=== PATIENT | female | born 1980 | race Caucasian/White ===

== ENCOUNTER 2017-12-22 05:21 | Emergency (ER) | payer BC ==
[2017-12-22 05:38] VITALS: TEMP 99.7; BMI 21.9
--- NOTE | 2017-12-22 06:11 | PDOC ---
Attending Attestation - Resident Resident Name: Amador Bowen - ED Attending Attestation I have performed the following: I have examined & evaluated the patient, The case was reviewed & discussed with the resident, I agree w/resident's findings & plan - HPI HPI: 12/22/17 06:04 Pt had a miscarriage of her 15 week twins. Babies had come out at home. Still attached to the cords. They called 911. Pt states before 911 arrived, the placentas came out. Pt states that she was cramping earlier in the week and she went to her PMD at [facility]. They checked her cervix which was 1.5cm dilated and she was placed on bedrest. Pt is healthy and active and she jogs; she does yoga and spin cycles. Pt is M1; she has a 5 yo child - Physicial Exam PE: 12/22/17 06:11 Abd NT ND; Lungs and heart normal; No flank pain. Pt has no fever or chills. She has minimal active bleeding at this time. - Medical Decision Making 12/22/17 06:12 PRIZER HAND aware of the patient; they recommend SONO at this time. labs will be sent and pt will be signed out to the day team.
[2017-12-22 06:31] LABS: BASO % 0.2 % (0-2.0); EOS % 0.4 % (0-4.5); HEMATOCRIT 31.4 % (32.4-45.2); HEMOGLOBIN 10.9 GM/dL (10.7-15.3); LYMPH % 4.6 % (8-40); MCH 31.2 pg (25.7-33.7); MCHC 34.5 g/dl (32.0-36.0); MEAN CELL VOLUME 90.4 fl (80-96); MEAN PLT VOLUME 9.2 fl (7.5-11.1); MONO % 5.5 % (3.8-10.2); NEUT % 89.3 % (42.8-82.8); PLATELET COUNT 146 K/MM3 (134-434); RBC 3.48 M/mm3 (3.60-5.2); RDW 13.1 % (11.6-15.6); WHITE BLOOD COUNT 13.3 K/mm3 (4.0-10.0)
[2017-12-22 06:46] LABS: INR 0.96 (0.83-1.09); PROTHROMBIN TIME (PATIENT) 11.3 SEC (9.7-13.0)
[2017-12-22 06:49] LABS: ACTIVATED PTT 24.6 SECONDS (25.2-36.5)
[2017-12-22 06:56] LABS: ALBUMIN 2.8 g/dl (3.4-5.0); ALK PHOS 79 U/L (45-117); ANION GAP 12 MMOL/L (8-16); BILIRUBIN,TOTAL 0.3 mg/dL (0.2-1); BLOOD UREA NITROGEN 7 mg/dL (7-18); CALCIUM 8.9 mg/dL (8.5-10.1); CHLORIDE 103 mmol/L (98-107); CO2 23 mmol/L (21-32); CREATININE 0.5 mg/dL (0.55-1.3); GLUCOSE,RANDOM 91 mg/dL (74-106); POTASSIUM 3.8 mmol/L (3.5-5.1); SGOT/AST 15 U/L (15-37); SGPT/ALT 19 U/L (13-61); SODIUM 138 mmol/L (136-145); TOT PROT 6.2 g/dl (6.4-8.2)
--- NOTE | 2017-12-22 07:26 | PDOC ---
History of Present Illness - General Chief Complaint: Vaginal Bleeding Stated Complaint: MISCARRIAGE Time Seen by Provider: 12/22/17 05:30 History Source: Patient Exam Limitations: No Limitations - History of Present Illness Initial Comments: 12/22/17 07:23 [id number] a5 presents for miscarriage of 15w gestation twins. Pt states that she was cramping earlier in the week and she went to her PMD at [facility]. They checked her cervix which was 1.5cm dilated and she was placed on bedrest. Place feels like most of the tissues of conception are out but is still dripping some blood. 12/22/17 07:30 Past History - Past Medical History Allergies/Adverse Reactions: Allergies Allergy/AdvReac Type Severity Reaction Status Date / Time No Known Allergies Allergy Verified 12/22/17 05:38 Home Medications: Ambulatory Orders NK [No Known Home Medication] 12/22/17 - Suicide/Smoking/Psychosocial Hx Smoking History: Never smoked Have you smoked in the past 12 months: No Information on smoking cessation initiated: No Hx Alcohol Use: No Drug/Substance Use Hx: No Review of Systems - Review of Systems Able to Perform ROS?: Yes Is the patient limited Ecuadorean proficient: No Constitutional: No: Symptoms Reported HEENTM: No: Symptoms Reported Respiratory: No: Symptoms reported Cardiac (ROS): No: Symptoms Reported ABD/GI: No: Symptoms Reported : No: Symptoms Reported Musculoskeletal: No: Symptoms Reported Integumentary: No: Symptoms Reported Neurological: No: Symptoms reported *Physical Exam - Vital Signs Last Vital Signs Temp Pulse Resp BP Pulse Ox 99.7 F H 86 18 113/68 96 12/22/17 05:34 12/22/17 05:34 12/22/17 05:34 12/22/17 05:34 12/22/17 05:34 - Physical Exam General Appearance: Yes: Nourished, Appropriately Dressed. No: Apparent Distress HEENT: positive: EOMI, XIMENA, Normal ENT Inspection Respiratory/Chest: positive: Chest Tender, Normal Breath Sounds, Respiratory Distress. negative: Lungs Clear Cardiovascular: positive: Regular Rhythm, Regular Rate, S1, S2 Gastrointestinal/Abdominal: positive: Normal Bowel Sounds, Flat, Soft. negative : Tender Extremity: positive: Normal Capillary Refill, Normal Inspection, Normal Range of Motion ED Treatment Course - LABORATORY CBC & Chemistry Diagram: 12/22/17 06:20 10/01/18 06:20 - ADDITIONAL ORDERS Additional order review: Laboratory Results 12/22/17 12/22/17 06:20 06:20 PT with INR 11.30 INR 0.96 PTT (Actin FS) 24.6 L Sodium 138 Potassium 3.8 Chloride 103 Carbon Dioxide 23 Anion Gap 12 BUN 7 Creatinine 0.5 L Creat Clearance w eGFR > 60 Random Glucose 91 Calcium 8.9 Total Bilirubin 0.3 AST 15 ALT 19 Alkaline Phosphatase 79 Total Protein 6.2 L Albumin 2.8 L 12/22/17 06:20 RBC 3.48 L MCV 90.4 MCHC 34.5 RDW 13.1 MPV 9.2 Neutrophils % 89.3 H Lymphocytes % 4.6 L Monocytes % 5.5 Eosinophils % 0.4 Basophils % 0.2 - RADIOLOGY Radiology Studies Ordered: Category Date Time Status TRANSVAGINAL ULTRASOUND US [US] Stat Ultrasound 12/22/17 05:47 Ordered Medical Decision Making - Medical Decision Making 12/22/17 07:32 Spoke to OBGYN who recommended basic labs, T&S, TVUS. If uterus empty, patient can be discharged. If not call [phone] Basic labs 12/22/17 07:33 Patient signed out to Dr. Corado. *DC/Admit/Observation/Transfer Diagnosis at time of Disposition: Miscarriage - Discharge Dispostion Condition at time of disposition: Fair - Referrals - Patient Instructions - Post Discharge Activity
--- NOTE | 2017-12-22 07:31 | PDOC ---
*Physical Exam - Vital Signs Last Vital Signs Temp Pulse Resp BP Pulse Ox 99.7 F H 86 18 113/68 96 12/22/17 05:34 12/22/17 05:34 12/22/17 05:34 12/22/17 05:34 12/22/17 05:34 ED Treatment Course - LABORATORY CBC & Chemistry Diagram: 12/22/17 06:20 12/22/17 06:20 - ADDITIONAL ORDERS Additional order review: Laboratory Results 12/22/17 12/22/17 06:20 06:20 PT with INR 11.30 INR 0.96 PTT (Actin FS) 24.6 L Sodium 138 Potassium 3.8 Chloride 103 Carbon Dioxide 23 Anion Gap 12 BUN 7 Creatinine 0.5 L Creat Clearance w eGFR > 60 Random Glucose 91 Calcium 8.9 Total Bilirubin 0.3 AST 15 ALT 19 Alkaline Phosphatase 79 Total Protein 6.2 L Albumin 2.8 L 12/22/17 06:20 RBC 3.48 L MCV 90.4 MCHC 34.5 RDW 13.1 MPV 9.2 Neutrophils % 89.3 H Lymphocytes % 4.6 L Monocytes % 5.5 Eosinophils % 0.4 Basophils % 0.2 Medical Decision Making - Medical Decision Making 12/22/17 07:18 Received sign out from Dr. Bowen. In short, pt is a 37 y/o female presenting s/p spontaneous of twin . Dr. Bowen spoke to [facility] OBGYN, who requested ultrasound to evaluate uterus. If no abnormalities are discovered, pt is safe to discharge home with outpatient follow up. Products were labeled and sent for pathologic evaluation. 12/22/17 10:32 U/S did not show gross evidence of retained products of conception. Pt reports bleeding and pain have mostly subsided. Feels like she is ready to go home. Discussed imaging and laboratory results with pt. Answered all questions. Provided return precautions. Pt expressed verbal understanding and agreement with plan to discharge home with outpatient OBGYN follow up. Pt will schedule appointment with her high risk OBGYN in [place]. Additionally provided local OBGYN referral. *DC/Admit/Observation/Transfer Diagnosis at time of Disposition: Miscarriage - Discharge Dispostion Disposition: HOME Condition at time of disposition: Good Decision to Admit order: No - Referrals Referrals: Melissa Grijalva MD [Staff Physician] - Monica Khoury MD [Staff Physician] - - Patient Instructions Printed Discharge Instructions: DI for Miscarriage, DI for Vaginal Bleeding During Additional Instructions: Your ultrasound did not show evidence of retained products of conception, however you still need to follow up with your OBGYN within the next 2-3 days. I have attached copies of the results from today's visit to this packet. Please take these with you to the appointment so your physician can review them. You will need to call to make an appointment. I have included a referral to an OBGYN within the [facility]. You can follow up with this physician if you are unable to see your OBGYN. your meat carrier is at [facility], preferably follow up with your regular physician. You may continue to experience a small amount of bleeding and cramping for the next few days. Use over the counter Motrin as needed for pain. Take as directed on the package insert. You will need to call the medical records department for the pathology results. The report usually takes approx. 1-2 weeks to complete. The number is included in this packet. Go to the nearest emergency department if your condition worsens or you feel like you need additional emergency evaluation. Print Language: GERMAN - Post Discharge Activity
--- NOTE | 2017-12-22 10:00 | PDOC ---
*Physical Exam - Vital Signs Last Vital Signs Temp Pulse Resp BP Pulse Ox 99.7 F H 86 18 113/68 96 12/22/17 05:34 12/22/17 05:34 12/22/17 05:34 12/22/17 05:34 12/22/17 05:34 ED Treatment Course - LABORATORY CBC & Chemistry Diagram: 12/22/17 06:20 12/22/17 06:20 - ADDITIONAL ORDERS Additional order review: Laboratory Results 12/22/17 12/22/17 12/22/17 06:20 06:20 06:20 PT with INR 11.30 INR 0.96 PTT (Actin FS) 24.6 L Sodium 138 Potassium 3.8 Chloride 103 Carbon Dioxide 23 Anion Gap 12 BUN 7 Creatinine 0.5 L Creat Clearance w eGFR > 60 Random Glucose 91 Calcium 8.9 Total Bilirubin 0.3 AST 15 ALT 19 Alkaline Phosphatase 79 Total Protein 6.2 L Albumin 2.8 L Blood Type A POSITIVE Antibody Screen Negative 12/22/17 06:20 RBC 3.48 L MCV 90.4 MCHC 34.5 RDW 13.1 MPV 9.2 Neutrophils % 89.3 H Lymphocytes % 4.6 L Monocytes % 5.5 Eosinophils % 0.4 Basophils % 0.2 Medical Decision Making - Medical Decision Making 12/22/17 09:[address] Malcolm at 7am pending US. in summary 37 YOF with VB, at 15 weeks gestation carrying twins. passed POC at home. PHOTOGR[employer]HER [employer] at [facility]. was made aware last night, advised TVUS. RH positive, no rhogam needed. POC with twins and intact placenta sent to pathology for further testing, TVUS_corpus luteal cyst, no IUP, thickened endometrium c/w recent miscarriage, no retained products. bleeding has been controlled here. NSAID/tylenol as needed for cramping and pain. f/u diet aide at [facility], results, impression and plan have been provided. return precautions discussed include fevers, worsening bleeding or AP. 12/22/17 10:42 *DC/Admit/Observation/Transfer Diagnosis at time of Disposition: Miscarriage - Discharge Dispostion Disposition: HOME Condition at time of disposition: Good Decision to Admit order: No - Referrals Referrals: Monica Khoury MD [Staff Physician] - Melissa Grijalva MD [Staff Physician] - - Patient Instructions Printed Discharge Instructions: DI for Vaginal Bleeding During , DI for Miscarriage Additional Instructions: Your ultrasound did not show evidence of retained products of conception, however you still need to follow up with your OBGYN within the next 2-3 days. I have attached copies of the results from today's visit to this packet. Please take these with you to the appointment so your physician can review them. You will need to call to make an appointment. I have included a referral to an OBGYN within the [facility]. You can follow up with this physician if you are unable to see your OBGYN. your diet aide is at [facility], preferably follow up with your regular physician. You may continue to experience a small amount of bleeding and cramping for the next few days. Use over the counter Motrin as needed for pain. Take as directed on the package insert. You will need to call the medical records department for the pathology results. The report usually takes approx. 1-2 weeks to complete. The number is included in this packet. Go to the nearest emergency department if your condition worsens or you feel like you need additional emergency evaluation. - Post Discharge Activity
[2017-12-22 11:06] VITALS: BP 105/60; PULSE 60
--- NOTE | 2017-12-26 11:32 | PATH ---
Surgical Pathology Report Patient Name: LIT FRENCH [facility]. Rec. #: [id number] /Age/Gender: 1980 (Age: 37) / F Account: [id number] Location: EMERGENCY ROOM Taken: 12/22/2017 Received: 12/22/2017 Reported: 12/26/2017 Physicians: PHYSICIAN EMERGENCY DEPT Specimen(s) Received PRODUCTS OF CONCEPTION Clinical History Spontaneous twin fetus with shared placenta at 15 weeks gestation Final Diagnosis PRODUCTS OF CONCEPTION: DIAMNIOTIC, MONOCHORIONIC, TWIN, IMMATURE PLACENTA (142 GRAMS). PLACENTA "A" SHOWS A THREE-VESSELS CORD, MEMBRANES WITH SEVERE ACUTE CHORIOAMNIONITIS. PLACENTA "B" SHOWS A THREE-VESSELS CORD, MEMBRANES WITH SEVERE ACUTE CHORIOAMNIONITIS. ACUTE CHORIONIC AMNIONITIS PRESENT IN THE DIVIDING MEMBRANES. FETUS A IS A MALE FETUS, 78 GRAMS, CONSISTENT WITH GESTATIONAL AGE OF 15 WEEKS. NO CONGENITAL ANOMALIES IDENTIFIED. FETUS B IS A MALE FETUS, 66 GRAMS, CONSISTENT WITH GESTATIONAL AGE OF 15 WEEKS. NO CONGENITAL ANOMALIES IDENTIFIED. Chromosomal microarray analysispending. Addendum report to follow. Electronically Signed Luigi Mas M.D. Addendum Reported: 01/28/2018 Addendum Diagnosis [place] ([facility] Specimen Number: [id number]) shows the following: MICROARRAY RESULT: NORMAL MALE INTERPRETATION: arr[hg19] (1-22) x2, (XY) x1 The whole genome chromosome SNP microarray (Reveal) analysis was normal. No significant changes in the specific SNP and structural targets were detected within the thresholds and specifications indicated below. No admixture of and maternal DNA was noted. See [facility] report for additional details ([facility] Specimen Number: [id number]) Luigi Mas M.D. Gross Description Received fresh labeled "product of conception," is a 142 g twin placenta comprised of a single disc by dividing membranes. The placenta measures 15.0 x 4.0 x 2.0 cm. The dividing membranes are thin and transparent. Fetus A is a male fetus weighing 78 grams with the following measurements: head circumference 11.2 cm; crown to rump 10.5 cm; crown to heel 16.2 cm; and foot length of 1.8 cm. External examination shows no abnormalities. Examination of the visceral organs shows normal location. Optical Effects Layout Person sections are submitted. The membranes of designated placenta "A" are mercado, translucent with focal opacities and insert marginally. The umbilical cord of placenta "A" measures 20 cm in length and averages 0.4 cm in diameter. The cord inserts eccentrically, 2 cm to the nearest margin. No true knots or strictures are identified. The cut surface of the umbilical cord reveals 3 vessels. The fetus A portion of placenta measures 11 x 4 x 2 cm. Portion Fetus B is a male fetus weighing 66 grams, with the following measurements: head circumference 11.0 cm; crown to rump 10.5 cm; crown to heel 14.7 cm; and foot length of 1.7 cm. External examination shows no congenital abnormalities. The fetus surface show congestive color change. Examination of the visceral organs shows normal location. Optical Effects Layout Person sections are submitted. The membranes of designated placenta "B" are mercado, translucent with focal opacities and insert marginally. The umbilical cord of placenta "B" measures 17 cm in length and averages 0.4 cm in diameter. The cord inserts marginally. No true knots or strictures are identified. Cut surface of the umbilical cord reveals 3 vessels. The maternal surface is irregular. Sectioning reveals spongy parenchyma. The fetus B portion of placenta measures 5 x 4 x 2 cm. Focal maternal surface near the fetus B placental margin show hemorrhage measuring 2.0 cm in greatest dimension. Optical Effects Layout Person sections are submitted in 13 cassettes as follows: 1-placenta "A" membrane rolls umbilical cord; 2-3-full thickness sections of placenta "A"; 4-placenta "B" membrane rolls umbilical cord; 5-6-full thickness sections of placenta "B"; 7-dividing membranes; 8, 9 sections from fetus A; 10 to 11- sections from fetus B; 12- additional umbilical cord sections from fetus A; 13- additional umbilical cord sections from fetus B. KWS/12/22/2017 sulki12/22/2017
== END 2017-12-22 11:18 | disposition home or self-care (01) ==
LOC: JER 05:21
DX: O26.892 Other specified pregnancy related conditions, second trimester (principal); O03.9 Complete or unspecified spontaneous abortion without complication; Z3A.15 15 weeks gestation of pregnancy
CPT/HCPCS: 36415; 76830-TC; 80053; 85025; 85610; 85730; 86850; 86900; 86901; 88309-TC; 99283-25